=== PATIENT | male | born 1990 | race Caucasian/White ===

== ENCOUNTER 2022-06-17 06:20 | Emergency (ER) | payer OTHER ==
[~2022-06-17] VITALS: Ht 175.3 cm; Wt 129.3 kg
[2022-06-17] MEDS ORDERED: ONDANSETRON ODT4 MG PO (08:57)
== END 2022-06-17 09:14 | disposition home or self-care (01) ==
LOC: ED 06:20
DX: R05.9 Cough, unspecified (principal); R19.7 Diarrhea, unspecified; R11.2 Nausea with vomiting, unspecified; K21.9 Gastro-esophageal reflux disease without esophagitis; Z79.899 Other long term (current) drug therapy; Z20.822 Contact with and (suspected) exposure to COVID-19
CPT/HCPCS: 36415; 71045; 80053; 83690; 85025; 87502; 87880; 94640; J2405; U0003

== ENCOUNTER 2022-09-02 17:25 | Emergency (ER) | payer OTHER ==
[~2022-09-02] VITALS: Ht 175.3 cm; Wt 127.1 kg
[~2022-09-02 17:25] MED LIST: ONDANSETRON ODT4 MG PO
[2022-09-02] MEDS ORDERED: VAZALORE81 MG PO (19:09)
[2022-09-02] MEDS ORDERED: METOPROLOL SUCC25 MG PO (19:09)
[2022-09-02] MEDS ORDERED: BUPROPION XL150 MG PO (19:10)
[2022-09-02] MEDS ORDERED: NITROGLYCERIN0.4 MG SL (19:10)
[2022-09-02] MEDS ORDERED: ROSUVASTATIN CA40 MG PO (19:10)
[2022-09-02] MEDS ORDERED: OMEPRAZOLE20 MG PO (19:10)
--- NOTE | 2022-09-04 15:31 | EKG ---
[facility] [address] [facility] [place] [address] Signed Normal sinus rhythm Normal ECG No previous ECGs available Confirmed by ROBBY WELCH MD ([id number]) on 09/04/2022 3:31:06 PM Electronically Signed By: ORBBY WELCH MD 09/04/22 1531 PATIENT NAME: GEOFFREY GRACIA JAS Electrocardiogram DATE OF : 86 PHYSICIAN: ROBBY WELCH MD REPORT #: [id number] REPORT IS CONFIDENTIAL AND NOT TO BE RELEASED WITHOUT AUTHORIZATION
== END 2022-09-02 21:54 | disposition home or self-care (01) ==
LOC: ED 17:25
DX: R07.2 Precordial pain (principal); Z87.891 Personal history of nicotine dependence; K21.9 Gastro-esophageal reflux disease without esophagitis; Z79.899 Other long term (current) drug therapy; Z79.82 Long term (current) use of aspirin
CPT/HCPCS: 36415; 71045; 80053; 84484; 85025; 85379; 93005; 93010; 99285-25

== ENCOUNTER 2022-09-05 22:40 | Emergency (ER) | payer OTHER ==
[~2022-09-05] VITALS: Ht 175.3 cm; Wt 127.1 kg
[~2022-09-05 22:40] MED LIST changes: +BUPROPION XL150 MG PO; +METOPROLOL SUCC25 MG PO; +NITROGLYCERIN0.4 MG SL; +OMEPRAZOLE20 MG PO; +ROSUVASTATIN CA40 MG PO; +VAZALORE81 MG PO
--- OUTSIDE RECORDS SUMMARY | 2022-09-05 22:48 | XMS ---
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 E.D. VISIT COUNT (12 MO.) [address] TOTAL 4 NOTE: Visits indicate total known visits. 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 Chest pain, unspecified 2. Unspecified abdominal pain 3. Nicotine dependence, cigarettes, uncomplicated 4. Procedure and treatment not carried out due to patient leaving prior to being seen by health care provider INPATIENT VISIT TRACKING (12 MO.) No inpatient visits to display in this time frame [id number]
--- NOTE | 2022-09-06 17:22 | EKG ---
[facility] [address] [facility] [place] [address] Signed Normal sinus rhythm Normal ECG No previous ECGs available Confirmed by Sarita Laboy MD () on 09/06/2022 5:22:25 PM Electronically Signed By: SARITA LABOY MD 09/06/221721 PATIENT NAME: GEOFFREY GRACIA JAS Electrocardiogram DATE OF : 86 PHYSICIAN: SARITA LABOY MD REPORT #: [id number] REPORT IS CONFIDENTIAL AND NOT TO BE RELEASED WITHOUT AUTHORIZATION
== END 2022-09-06 00:27 | disposition home or self-care (01) ==
LOC: ED 22:40
DX: R07.9 Chest pain, unspecified (principal); K21.9 Gastro-esophageal reflux disease without esophagitis; E78.00 Pure hypercholesterolemia, unspecified; Z79.82 Long term (current) use of aspirin; Z79.899 Other long term (current) drug therapy
CPT/HCPCS: 36415; 71045; 80053; 83735; 84484; 85025; 93005; 93010; 99285-25

== ENCOUNTER 2023-01-27 00:42 | Emergency (ER) | payer OTHER ==
[~2023-01-27] VITALS: Ht 175.3 cm; Wt 130.7 kg
[2023-01-27] MEDS ORDERED: HYDROXYZINE HCL25 MG PO (01:06)
[2023-01-27] MEDS ORDERED: DOXYCYCLINE HY100 MG PO (01:19)
[2023-01-27] MEDS ORDERED: PYRIDIUM100 MG PO (01:41)
== END 2023-01-27 01:54 | disposition home or self-care (01) ==
LOC: ED 00:42
DX: N34.2 Other urethritis (principal); K21.9 Gastro-esophageal reflux disease without esophagitis; E78.00 Pure hypercholesterolemia, unspecified; Z79.82 Long term (current) use of aspirin
CPT/HCPCS: 81001; 87491; 96372; 99283; J0696

== ENCOUNTER 2023-05-09 14:22 | Emergency (ER) | payer OTHER ==
[~2023-05-09] VITALS: Ht 175.3 cm; Wt 130.7 kg
[~2023-05-09 14:22] MED LIST changes: +DOXYCYCLINE HY100 MG PO; +HYDROXYZINE HCL25 MG PO; +PYRIDIUM100 MG PO
[2023-05-09 17:03] VITALS: BP 136/73
--- NOTE | 2023-05-14 19:06 | EKG ---
[facility] [address] [facility] [place] [address] Signed Normal sinus rhythm Normal ECG When compared with ECG of 05-SEP-2022 22:39, Vent. rate has increased BY 31 BPM Confirmed by PETER CLAROS MD ([id number]) on 05/14/2023 7:06:43 PM Electronically Signed By: PETER CLAROS 05/14/23 1906 PATIENT NAME: ZACARIAS GRACIACIPRIANO IGLESIAS JAS Electrocardiogram DATE OF : 86 PHYSICIAN: PETER CLAROS REPORT #: [id number] REPORT IS CONFIDENTIAL AND NOT TO BE RELEASED WITHOUT AUTHORIZATION
== END 2023-05-09 17:06 | disposition home or self-care (01) ==
LOC: ED 14:22
DX: R10.11 Right upper quadrant pain (principal); Z79.899 Other long term (current) drug therapy; Z79.82 Long term (current) use of aspirin
CPT/HCPCS: 36415; 76705; 80053; 83690; 84484; 85025; 93005; 93010; 96374; 99284 25; J1885; J7030

== ENCOUNTER 2024-03-07 10:53 | Emergency (ER) | payer OTHER ==
[~2024-03-07] VITALS: Ht 175.3 cm; Wt 129.0 kg
[2024-03-07 12:06] VITALS: BP 138/82
== END 2024-03-07 12:06 | disposition home or self-care (01) ==
LOC: ED 10:53
DX: S01.81XA Laceration without foreign body of other part of head, initial encounter (principal); W01.198A Fall on same level from slipping, tripping and stumbling with subsequent striking against other object, initial encounter
CPT/HCPCS: 12013; 99282

== ENCOUNTER 2025-03-24 13:41 | Emergency (ER) | payer OTHER ==
[~2025-03-24] VITALS: Ht 175.3 cm; Wt 136.3 kg
[2025-03-24] MEDS ORDERED: ROSUVASTATIN CA20 MG PO (14:36)
[2025-03-24] MEDS ORDERED: AMOX TR-K CLV1 EAC1 PO (14:36)
[2025-03-24] MEDS ORDERED: CHLORHEXIDINE473 ML MM (14:36)
[2025-03-24] MEDS ORDERED: HYDROCODON-ACE1 EA10 PO (15:07)
[2025-03-24] MEDS ORDERED: ACETAMINOPHEN 500 MG TAB PO ONE (15:15)
[2025-03-24] MEDS ORDERED: IBUPROFEN 600 MG TAB PO ONE (15:15)
[2025-03-24 15:20] VITALS: BP 155/92
== END 2025-03-24 15:18 | disposition home or self-care (01) ==
LOC: ED 13:41
DX: K02.9 Dental caries, unspecified (principal); K21.9 Gastro-esophageal reflux disease without esophagitis
CPT/HCPCS: 99282; A9270

== ENCOUNTER 2025-04-09 20:33 | Emergency (ER) | payer OTHER ==
[~2025-04-09] VITALS: Ht 175.3 cm; Wt 135.9 kg
[~2025-04-09 20:33] MED LIST changes: +AMOX TR-K CLV1 EAC1 PO; +CHLORHEXIDINE473 ML MM; +HYDROCODON-ACE1 EA10 PO; +ROSUVASTATIN CA20 MG PO
--- OUTSIDE RECORDS SUMMARY | 2025-04-09 20:39 | XMS ---
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 PHONE: [phone] [place] [facility] Clinic[facility]Center: Primary Care [facility] PHONE: [phone] Keith has no Care Guidelines for this patient. E.D. VISIT COUNT (12 MO.) 3 [facility] NOTE: Visits indicate total known visits. ED/UCC VISIT TRACKING (12 MO.) 04/09/2025 20:33 [facility] [place] TYPE: Emergency COMPLAINT: - TOOTH PAIN 03/24/2025 13:42 [facility] [place] TYPE: Emergency COMPLAINT: - HEADACHE DIAGNOSES: - Dental caries, unspecified - Gastro-esophageal reflux disease without esophagitis - Other specified disorders of teeth and supporting structures 11/23/2024 11:20 [facility] [place] TYPE: Emergency DIAGNOSES: - Chest pain, unspecified - chest pain 05/24/2024 12:[address] [facility] [place] TYPE: Emergency COMPLAINT: - SYNCOPE DIAGNOSES: - Syncope and collapse INPATIENT VISIT TRACKING (12 MO.) No inpatient visits to display in this time frame [id number]
[2025-04-09] MEDS ORDERED: clindamycin HCL 300 MG CAP PO ONE (22:00)
[2025-04-09] MEDS ORDERED: HYDROCODONE/ACETA 5/325 TAB PO ONE (22:00)
[2025-04-09 22:01] LABS: BASOPHILS 0.7 % (0.2-1.2); EOSINOPHILS 4.1 % (0.8-7.0); HEMOGLOBIN 13.7 g/dL (13.7-17.5); MCH 29.1 PG (25.7-32.2); MCHC 34.3 g/dL (32.3-36.5); MCV 84.9 fL (79.0-92.2); MONOCYTES 7.8 % (5.3-12.2); NEUTROPHILS 59.1 % (34.0-67.9); PLATELET COUNT 244 K/uL (163-337); RBC 4.71 M/uL (4.63-6.08)
[2025-04-09] MEDS ORDERED: CLEOCIN HCL300 MG PO (22:26)
[2025-04-09] MEDS ORDERED: HYDROCODONE BIT/ACETAMINOPHEN 5/325 MG 1 TAB HOME.PACK PO ONE (22:30)
[2025-04-09] MEDS ORDERED: clindamycin HCL 300 MG HOME.PACK PO ONE (22:30)
[2025-04-09 22:48] VITALS: BP 129/87
== END 2025-04-09 22:50 | disposition home or self-care (01) ==
LOC: ED 20:33
PROVIDERS: Family Medicine
DX: K04.7 Periapical abscess without sinus (principal); K21.9 Gastro-esophageal reflux disease without esophagitis; E78.00 Pure hypercholesterolemia, unspecified; Z79.899 Other long term (current) drug therapy
CPT/HCPCS: 36415; 85025; 99283; A9270

== ENCOUNTER 2025-04-10 15:44 | Emergency (ER) | payer OTHER ==
[~2025-04-10] VITALS: Ht 175.3 cm; Wt 134.0 kg
[~2025-04-10 15:44] MED LIST changes: +CLEOCIN HCL300 MG PO
--- OUTSIDE RECORDS SUMMARY | 2025-04-10 15:50 | XMS ---
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 E.D. VISIT COUNT (12 MO.) 4 [facility] NOTE: Visits indicate total known visits. ED/UCC VISIT TRACKING (12 MO.) 04/10/2025 15:44 [facility] [place] TYPE: Emergency COMPLAINT: - MOUTH PAIN 04/09/2025 20:33 [facility] [place] TYPE: Emergency COMPLAINT: - TOOTH PAIN 03/24/2025 13:42 [facility] [place] TYPE: Emergency COMPLAINT: - HEADACHE DIAGNOSES: - Dental caries, unspecified - Gastro-esophageal reflux disease without esophagitis - Other specified disorders of teeth and supporting structures 11/23/2024 11:20 [facility] [place] TYPE: Emergency DIAGNOSES: - Chest pain, unspecified - chest pain 05/24/2024 12:14 [facility] [place] TYPE: Emergency COMPLAINT: - SYNCOPE DIAGNOSES: - Syncope and collapse INPATIENT VISIT TRACKING (12 MO.) No inpatient visits to display in this time frame [id number]
[2025-04-10 19:26] VITALS: BP 144/75
[2025-04-10] MEDS ORDERED: OXYCODONE/ACETAMINOPHEN 1 TAB HOME.PACK PO ONE (19:30)
== END 2025-04-10 19:38 | disposition home or self-care (01) ==
LOC: ED 15:44
DX: K04.7 Periapical abscess without sinus (principal); K21.9 Gastro-esophageal reflux disease without esophagitis; E78.00 Pure hypercholesterolemia, unspecified; Z79.899 Other long term (current) drug therapy
CPT/HCPCS: 99282

== ENCOUNTER 2025-07-16 08:17 | Emergency (ER) | payer OTHER ==
[~2025-07-16] VITALS: Ht 175.3 cm; Wt 128.3 kg
[2025-07-16] MEDS ORDERED: ONDANSETRON 4 MG TAB ODT SL ONE (08:30)
[2025-07-16] MEDS ORDERED: HYDROCODON-ACE1 EA11 PO (09:03)
[2025-07-16] MEDS ORDERED: ONDANSETRON ODT8 MG PO (09:03)
[2025-07-16] MEDS ORDERED: IBUPROFEN 600 MG TAB PO ONE (09:15)
[2025-07-16] MEDS ORDERED: HYDROCODONE/ACETA 7.5/325 TAB PO ONE (09:15)
[2025-07-16 09:35] VITALS: BP 122/76
== END 2025-07-16 09:36 | disposition home or self-care (01) ==
LOC: ED 08:17
DX: S83.92XA Sprain of unspecified site of left knee, initial encounter (principal); X50.1XXA Overexertion from prolonged static or awkward postures, initial encounter; Z79.899 Other long term (current) drug therapy
CPT/HCPCS: 73560; 99283; A9270

== ENCOUNTER 2025-10-17 09:58 | Emergency (ER) | payer OTHER ==
[~2025-10-17] VITALS: Ht 175.3 cm; Wt 129.5 kg
[~2025-10-17 09:58] MED LIST changes: +HYDROCODON-ACE1 EA11 PO; +ONDANSETRON ODT8 MG PO
[2025-10-17 10:27] LABS: BASOPHILS 0.7 % (0.2-1.2); EOSINOPHILS 4.4 % (0.8-7.0); LYMPHOCYTES 26.0 % (21.8-53.1); MCH 30.4 PG (25.7-32.2); MCHC 35.4 g/dL (32.3-36.5); MCV 85.8 fL (79.0-92.2); MONOCYTES 10.1 % (5.3-12.2); NEUTROPHILS 58.4 % (34.0-67.9); RBC 4.94 M/uL (4.63-6.08)
[2025-10-17] MEDS ORDERED: SODIUM CHLORIDE 0.9% 1,000 ML IV ONE (10:30)
[2025-10-17] MEDS ORDERED: KETOROLAC TROMETHAMINE 15 MG/ML VIAL IV ONE (10:30)
[2025-10-17 10:52] LABS: CORONAVIRUS COVID-19 AG NEGATIVE (NEGATIVE)
[2025-10-17 10:57] LABS: GLOMERULAR FILTRATION RATE,EST 97 mL/min (>60); PROTEIN, TOTAL 7.5 g/dL (6.4-8.2); UREA NITROGEN 13 mg/dL (7-18)
[2025-10-17] MEDS ORDERED: ONDANSETRON ODT4 MG PO (11:47)
[2025-10-17 11:54] VITALS: BP 125/81
[2025-10-17 13:17] LABS: ALT (SGPT) 30 U/L (14-59)
== END 2025-10-17 11:55 | disposition home or self-care (01) ==
LOC: ED 09:58
PROVIDERS: Emergency Medicine
DX: S00.03XA Contusion of scalp, initial encounter (principal); B34.9 Viral infection, unspecified; R51.9 Headache, unspecified; K21.9 Gastro-esophageal reflux disease without esophagitis; E78.00 Pure hypercholesterolemia, unspecified; W22.8XXA Striking against or struck by other objects, initial encounter; Z79.899 Other long term (current) drug therapy
CPT/HCPCS: 36415; 70450; 80053; 85025; 96361; 96374; 96375; 99284-25; J1885; J2405; J7030

== ENCOUNTER 2025-10-30 22:43 | Emergency (ER) | payer OTHER ==
[~2025-10-30] VITALS: Ht 175.3 cm; Wt 130.2 kg
--- OUTSIDE RECORDS SUMMARY | 2025-10-30 22:54 | XMS ---
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 PHONE: [phone] Keith has no Care Guidelines for this patient. E.D. VISIT COUNT (12 MO.) 6 [facility] T[facility] 7 NOTE: Visits indicate total known visits. ED/UCC VISIT TRACKING (12 MO.) 10/30/2025 22:48 [facility] [place] TYPE: Emergency COMPLAINT: - CARBON DIOXIDE EXPOSURE 10/17/2025 09:58 [facility] [place] TYPE: Emergency COMPLAINT: - DIZZINESS DIAGNOSES: - Contusion of scalp, initial encounter - Gastro-esophageal reflux disease without esophagitis - Headache, unspecified - Nausea with vomiting, unspecified - Other snf (current) drug therapy - Pure hypercholesterolemia, unspecified - Striking against or struck by other objects, initial encounter - Viral infection, unspecified 07/16/2025 08:18 [facility] [place] COMPLAINT: - FALL DIAGNOSES: - Nausea - Other snf (current) drug therapy - Overexertion from prolonged static or awkward postures, initial encounter - Sprain of unspecified site of left knee, initial encounter 04/10/2025 15:44 [facility] [place] TYPE: Emergency COMPLAINT: - MOUTH PAIN DIAGNOSES: - Gastro-esophageal reflux disease without esophagitis - Other snf (current) drug therapy - Other specified disorders of teeth and supporting structures - Periapical abscess without sinus - Pure hypercholesterolemia, unspecified 04/09/2025 20:33 [facility] [place] TYPE: Emergency COMPLAINT: - TOOTH PAIN DIAGNOSES: - Gastro-esophageal reflux disease without esophagitis - 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 - Periapical abscess without sinus - Pure hypercholesterolemia, unspecified 03/24/2025 13:42 [facility] [place] TYPE: Emergency COMPLAINT: - HEADACHE DIAGNOSES: - Dental caries, unspecified - Gastro-esophageal reflux disease without esophagitis - Other specified disorders of teeth and supporting structures 11/23/2024 11:20 [facility] [place] TYPE: Emergency DIAGNOSES: - Chest pain, unspecified - chest pain INPATIENT VISIT TRACKING (12 MO.) No inpatient visits to display in this time frame [id number]
[2025-10-30 23:20] LABS: BASOPHILS 0.7 % (0.2-1.2); EOSINOPHILS 4.4 % (0.8-7.0); LYMPHOCYTES 29.5 % (21.8-53.1); MCH 30.4 PG (25.7-32.2); MCHC 35.2 g/dL (32.3-36.5); MCV 86.2 fL (79.0-92.2); MONOCYTES 7.4 % (5.3-12.2); NEUTROPHILS 57.7 % (34.0-67.9); RBC 4.87 M/uL (4.63-6.08)
[2025-10-30] MEDS ORDERED: KETOROLAC TROMETHAMINE 30 MG/ML VIAL IV ONE (23:30)
[2025-10-30 23:56] LABS: AST (SGOT) 23.0 U/L (15-37); GLOMERULAR FILTRATION RATE,EST 94.0 mL/min (>60); PROTEIN, TOTAL 7.6 g/dL (6.4-8.2); UREA NITROGEN 15.0 mg/dL (7-18)
[2025-10-31 00:06] LABS: ALT (SGPT) 58.0 U/L (14-59)
[2025-10-31] MEDS ORDERED: CYCLOBENZAPRINE HCL 10 MG HOME.PACK PO ONE (00:15)
[2025-10-31] MEDS ORDERED: CYCLOBENZAPRINE10 MG PO (00:15)
[2025-10-31 00:24] VITALS: BP 100/86
== END 2025-10-31 00:24 | disposition home or self-care (01) ==
LOC: ED 22:43
PROVIDERS: Family Medicine
DX: T58.91XA Toxic effect of carbon monoxide from unspecified source, accidental (unintentional), initial encounter (principal); R51.9 Headache, unspecified; M54.50 Low back pain, unspecified
CPT/HCPCS: 36415; 80053; 82375; 82803; 85025; 94799; 96374; 99284-25; J1885